=== PATIENT | female | born 1985 | race African-American/Black ===

== ENCOUNTER 2018-01-29 16:51 | Emergency (ER) | payer SELFPAY ==
[~2018-01-29] VITALS: Ht 172.7 cm; Wt 118.8 kg
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
--- OUTSIDE RECORDS SUMMARY | 2018-01-29 16:54 | XMS REPORT | Summary of Care ---
Author Organization Unknown Address Unknown Phone Unavailable Encounter BRYANNA Garcia(GIFTY) [id number] Date(s): 12/05/13 - 12/05/13 [facility] [address] [place] [address] Discharge Diagnosis: UTI (lower urinary tract infection) Discharge Diagnosis: Sciatica Discharge Disposition: Home Physician Attending: Aurora Watters MD Reason for Visit LOWER BACK PAIN Vital Signs Most recent to 1 2 oldest [Reference Range]: Height 175.26 cm (12/05/13 10:35 AM) Temperature Oral 98.2 DegF 97.9 DegF [96.4-99.1 DegF] (12/05/13 12:18 PM) (12/05/13 10:35 AM) Systolic Blood 127 mmHg 132 mmHg Pressure [90-140 (12/05/13 12:18 PM) (12/05/13 10:35 AM) mmHg] Diastolic Blood 83 mmHg 88 mmHg Pressure [60-90 (12/05/13 12:18 PM) (12/05/13 10:35 AM) mmHg] Respiratory Rate 18 BRMIN 19 BRMIN [14-20 BRMIN] (12/05/13 12:18 PM) (12/05/13 10:35 AM) Peripheral Pulse 73 bpm 91 bpm Rate [60-100 bpm] (12/05/13 12:18 PM) (12/05/13 10:35 AM) Weight 110.568 kg (12/05/13 10:35 AM) Body Mass Index 36 m2 (12/05/13 10:35 AM) Problem List No data available for this section Allergies, Adverse Reactions, Alerts No data available for this section Medications Flexeril 10 mg oral tablet 10 mg, PO, TID, Muscle Spasm, # 30 tab, 0 Refill(s) Start Date: 12/05/13 Stop Date: 12/15/13 Status: Ordered ketorolac 60 mg, 2 mL, Route: IM, Drug form: INJ, ONCE, Dosing Weight 110.568, kg, Priorit y: STAT, Start date: 12/05/13 11:21:00, Stop date: 12/05/13 11:21:00 Notes: (Same as:Toradol) IV bolus must be given >15 seconds. Give IM administration slowly and deeply into the muscle. Not for use > 4 days Start Date: 12/05/13 Stop Date: 12/05/13 Status: Completed Macrobid 100 mg oral capsule 100 mg=1 cap, PO, BID, # 14 cap, 0 Refill(s) Start Date: 12/05/13 Stop Date: 12/12/13 Status: Ordered Naprosyn 500 mg oral tablet 500 mg=1 tab, PO, BID, for pain, # 20 tab, 0 Refill(s) Start Date: 12/05/13 Status: Ordered orphenadrine 60 mg, 2 mL, Route: IM, Drug form: INJ, ONCE, Dosing Weight 110.568, kg, Priorit y: STAT, Start date: 12/05/13 11:21:00, Stop date: 12/05/13 11:21:00 Start Date: 12/05/13 Stop Date: 12/05/13 Status: Completed Results URINE AND STOOL Most recent to 1 oldest [Reference Range]: UA Turbidity [Clear] Clear (12/05/13 11:40 AM) UA Color [Yellow] Yellow *NA* (12/05/13 11:40 AM) UA pH [5.0-8.0] 7.0 (12/05/13 11:40 AM) UA Spec Grav 1.010 [<=1.030] (12/05/13 11:40 AM) UA Glucose Negative [Negative] (12/05/13 11:40 AM) UA Blood [Negative] Negative (12/05/13 11:40 AM) UA Ketones Negative [Negative] *NA* (12/05/13 11:40 AM) UA Protein Negative [Negative] (12/05/13 11:40 AM) UA Urobilinogen 0.2 EU/dL [0.1-1.0 EU/dL] (12/05/13 11:40 AM) UA Bili [Negative] Negative *NA* (12/05/13 11:40 AM) UA Leuk Est Small [Negative] *ABN* (12/05/13 11:40 AM) UA Nitrite Negative [Negative] (12/05/13 11:40 AM) UA WBC [None Seen 6-10 /HPF /HPF] *ABN* (12/05/13 11:40 AM) UA RBC [0-2 /HPF] 0-2 /HPF (12/05/13 11:40 AM) UA Bacteria [None Few /HPF Seen /HPF] (12/05/13 11:40 AM) UA Sq Epi [Few /LPF] Few /LPF (12/05/13 11:40 AM) UA Mucus [None Seen Few /LPF /LPF] (12/05/13 11:40 AM) UA Trichomonas [None Few /HPF Seen /HPF] *ABN* (12/05/13 11:40 AM) UA [place] Yeast [None Few /HPF Seen /HPF] *ABN* (12/05/13 11:40 AM) Micro? Performed (12/05/13 11:40 AM) Medications Administered During Your Visit No data available for this section Immunizations No data available for this section Social History Social History Type Response Smoking Status Current every day smoker, Type: Cigarettes, Ready to change: No, Concerns about tobacco use in household: No, Exposure to Tobacco Smoke None, Cigarette Smoking Last 365 Days Yes, Reg Smoking Cessation Counseling Yes
--- OUTSIDE RECORDS SUMMARY | 2018-01-29 16:54 | XMS REPORT | Summary of Care ---
Author Author [facility] Organization [facility] Address Unknown Phone Unavailable Encounter BRYANNA Garcia(GIFTY) [id number] Date(s): 01/23/17 - 01/23/17 [facility] [address] [employer] provided by [facility] [place] [address]- Discharge Disposition: Home or Self Care Attending Physician: Madalyn Barnes MD Vital Signs 1 2 3 Most recent to oldest [Reference Range]: 172.72 cm (01/23/17 7:13 AM) Height 97.7 DegF (01/23/17 8:57 AM) 98.2 DegF (01/23/17 7:13 AM) Temperature Oral [96.4-99.1 DegF] 123/77 mmHg (01/23/17 8:51 AM) 132/88 mmHg (01/23/17 7:29 AM) 135/85 mmHg (01/23/17 7:13 AM) Blood Pressure [90-140/60-90 mmHg] 20 BRMIN (01/23/17 8:51 AM) 18 BRMIN (01/23/17 7:29 AM) 20 BRMIN (01/23/17 7:13 AM) Respiratory Rate [14-20 BRMIN] 79 bpm (01/23/17 7:13 AM) Peripheral Pulse Rate [60-100 bpm] 100.455 kg (01/23/17 7:13 AM) Weight 33.67 m2 (01/23/17 7:13 AM) Body Mass Index Problem List No data available for this section Allergies, Adverse Reactions, Alerts No data available for this section Medications acetaminophen 650 mg, Route: PO, Drug form: TAB, ONCE, Dosing Weight 100.455, kg, Priority: ST AT, Start date: 01/23/17 7:53:00 [employer], Stop date: 01/23/17 7:53:00 [employer] Start Date: 01/23/17 Stop Date: 01/23/17 Status: Completed diphenhydrAMINE 25 mg, Route: PO, Drug form: CAP, ONCE, Dosing Weight 100.455, kg, Priority: STA T, Start date: 01/23/17 7:53:00 [employer], Stop date: 01/23/17 7:53:00 [employer] Start Date: 01/23/17 Stop Date: 01/23/17 Status: Completed hydrocortisone topical 1% cream 1 appl, Route: TOP, TID, Drug form: CRM, Start date: 01/23/17 9:00:00 [employer], Durat ion: 30 day, Stop date: 02/21/17 17:00:00 [employer] Start Date: 01/23/17 Stop Date: 01/23/17 Status: Discontinued ibuprofen 400 mg, Route: PO, ONCE, Dosing Weight 100.455, kg, Priority: STAT, Start date: 01/23/17 7:53:00 [employer], Stop date: 01/23/17 7:53:00 [employer] Start Date: 01/23/17 Stop Date: 01/23/17 Status: Completed Zofran ODT 4 mg, Route: PO, Drug form: TABDIS, ONCE, Dosing Weight 100.455, kg, Priority: S TAT, Start date: 01/23/17 7:53:00 [employer], Stop date: 01/23/17 7:53:00 [employer] Start Date: 01/23/17 Stop Date: 01/23/17 Status: Completed Results No data available for this section Immunizations No data available for this section Procedures Procedure Date Related Diagnosis Body Site section Social History Social History Type Response Smoking Status Former smoker; Type: Cigarettes; Ready to change: No; Concerns about tobacco use in household: No; Exposure to Tobacco Smoke None; Cigarette Smoking Last 365 Days Yes; Reg Smoking Cessation Counseling Yes; Tobacco use per day: 1; Assessment and Plan No data available for this section
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
[2018-01-29 17:35] LABS: BASOPHILS # (AUTO) 0.1 (0.0-0.1); BASOPHILS % 0.5 % (0.0-1.0); EOSINOPHILS # (AUTO) 0.4 (0.0-0.4); EOSINOPHILS % 3.8 % (0.0-6.0); HEMATOCRIT 34.1 % (34.2-44.1); HEMOGLOBIN 11.4 g/dL (12.0-16.0); LYMPHOCYTES % 27.2 % (18.0-39.1); MEAN CORPUSCULAR HEMOGLOBIN 28.4 pg (28-32); MEAN CORPUSCULAR HGB CONC 33.4 g/dL (31-35); MEAN CORPUSCULAR VOLUME 84.8 fL (81-99); MONOCYTES # (AUTO) 0.8 (0.2-0.8); MONOCYTES % 7.3 % (4.4-11.3); NEUTROPHILS # (AUTO) 6.8 (2.1-6.9); NEUTROPHILS % 60.8 % (38.7-80.0); PLATELET COUNT 348 x10e3/uL (140-360); RED BLOOD COUNT 4.02 x10e6/uL (3.6-5.1); RED CELL DISTRIBUTION WIDTH 13.3 % (11.7-14.4)
--- NOTE | 2018-01-29 17:43 | Diagnostic Imaging Report ---
EXAMINATION: CHEST 2 VIEWS INDICATION: Chest pain COMPARISON: None FINDINGS: TUBES and LINES: None. LUNGS: Lungs are well inflated. Lungs are clear. There is no evidence of pneumonia or pulmonary edema. PLEURA: No pleural effusion or pneumothorax. HEART AND MEDIASTINUM: The cardiomediastinal silhouette is unremarkable. BONES AND SOFT TISSUES: No acute osseous lesion. Soft tissues are unremarkable. UPPER ABDOMEN: No free air under the diaphragm. IMPRESSION: No acute thoracic abnormality. Signed by: Dr. Dave Mobley M.D. on 01/29/2018 5:40 PM
[2018-01-29 17:47] LABS: BILIRUBIN,URINE NEGATIVE (NEGATIVE); CLARITY,URINE CLEAR (CLEAR); COLOR,URINE YELLOW (YELLOW); KETONES,URINE NEGATIVE (NEGATIVE); LEUKOCYTE ESTERASE ,URINE NEGATIVE (NEGATIVE); NITRITE,URINE NEGATIVE (NEGATIVE); PREGNANCY TEST, URINE NEGATIVE (NEGATIVE); PROTEIN,URINE DIPSTICK NEGATIVE (NEGATIVE); URINE UROBILINOGEN 0.2 mg/dL (0.2 - 1)
[2018-01-29 18:00] LABS: AMORPHOUS SEDIMENT,URINE MODERATE (FEW); BACTERIA,URINE MODERATE /HPF; EPITHELIAL CELLS,URINE MANY /LPF
[2018-01-29 19:05] LABS: ALANINE AMINOTRANSFERASE 24 IU/L (0-55); ALBUMIN 3.5 g/dL (3.5-5.0); ALKALINE PHOSPHATASE 72 IU/L (40-150); ANION GAP 12.9 mmol/L (8-16); BLOOD UREA NITROGEN 12 mg/dL (7-26); BUN/CREATININE RATIO 12 (6-25); CALCIUM 9.8 mg/dL (8.4-10.2); CARBON DIOXIDE 23 mmol/L (22-29); CHLORIDE 108 mmol/L (98-107); CREATINE KINASE 262 IU/L (29-168); CREATININE, SERUM 0.98 mg/dL (0.57-1.11); EST GLOMERULAR FILTRATION RATE > 60 ML/MIN (60-); GLUCOSE 100 mg/dL (74-118); LIPASE 21 U/L (8-78); POTASSIUM 3.9 mmol/L (3.5-5.1); SODIUM 140 mmol/L (136-145)
[2018-01-29 19:25] LABS: ALBUMIN/GLOBULIN RATIO 1.1 (0.8-2.0)
--- NOTE | 2018-01-29 19:50 | Diagnostic Imaging Report ---
EXAM: CT Chest WITH contrast 01/29/2018 6:09 PM INDICATION: Chest pain. Elevated d-dimer. Shortness of breath. COMPARISON: None TECHNIQUE: Chest was scanned utilizing a multidetector helical scanner from the lung apex through the level of the adrenal glands without administration of IV contrast. Coronal and sagittal reformations were obtained. CTA chest pulmonary embolism protocol was performed. IV CONTRAST: 100 mL of Isovue-370 RADIATION DOSE: Total DLP: 525.5 to mGy*cm Estimated effective dose: (DLP x 0.014 x size factor) mSv All CT scans are performed using radiation dose reduction techniques. Technical factors are evaluated and adjusted to ensure appropriate moderation of exposure. Automated dose management technology is applied to adjust the radiation dose to minimize exposure while achieving a diagnostic-quality image. COMPLICATIONS: None FINDINGS: No pulmonary embolism is seen. LINES/ TUBES: None. LUNGS AND AIRWAYS: The lungs are unremarkable. Airways are normal. PLEURA: The pleural spaces are clear. HEART AND MEDIASTINUM: The thyroid gland is normal. No mediastinal, hilar or axillary lymphadenopathy. The heart is normal in size.. There is no pericardial effusion. UPPER ABDOMEN: Unremarkable BONES: The visualized bony thorax is within normal limits. SOFT TISSUES: Unremarkable. IMPRESSION: No pulmonary edema is seen. No acute cardiopulmonary abnormality. Signed by: Dr. Dave Mobley M.D. on 01/29/2018 7:47 PM
[2018-01-29 20:00] VITALS: BP 114/80
[2018-01-29] MEDS ORDERED: IOPAMIDOL 370 MG/ML 200 ML INFUS..BTL INJ ONE (21:17)
[2018-01-29] MEDS ORDERED: SODIUM CHLORIDE 0.9% 50ML 50 ML ONE (21:17)
== END 2018-01-29 20:12 | disposition home or self-care (01) ==
LOC: ER 16:51
DX: R07.89 Other chest pain (principal); R06.00 Dyspnea, unspecified; R11.0 Nausea
CPT/HCPCS: 36415; 71046; 71260; 80053; 81001; 81025; 82550; 82553; 83690; 84484; 85025; 85379; 93005; 99284; Q9967

== ENCOUNTER 2018-05-08 17:58 | Emergency (ER) | payer SELFPAY ==
[~2018-05-08] VITALS: Ht 172.7 cm; Wt 118.8 kg
--- OUTSIDE RECORDS SUMMARY | 2018-05-08 18:01 | XMS REPORT ---
Author Author [facility] Address Unknown Phone Unavailable Care Team Providers Care Ski Instructor Name Role Phone See LOFTON Unavailable Unavailable Problems This patient has no known problems. Allergies, Adverse Reactions, Alerts This patient has no known allergies or adverse reactions. Medications This patient has no known medications. Results Test Description Test Time Test Comments Text Results Atomic Results Result Comments CT CHEST W 2018-01-29 19:42:00 [place] [address] Patient Name: JACKIE NAVARRETE MR #: [id number] : 1985 Age/Sex: 32/F Req #: [id number] Adm Physician: Ordered by: LARISA LOFTON MD Report #: [id number] Location: ER Room/Bed: Procedure: [id number] CT/CT CHEST W Exam Date: 01/29/18 Exam Time: 1924 REPORT STATUS: Signed EXAM: CT Chest WITH contrast 01/29/2018 6:09 PM INDICATION: Chest pain. Elevated d-dimer. Shortness of breath. COMPARISON: None TECHNIQUE: Chest was scanned utilizing a multidetector helical scanner from the lung apex through the level of the adrenal glands without administration of IV contrast. Coronal and sagittal reformations were obtained. CTA chest pulmonary embolism protocol was performed. IV CONTRAST: 100 mL of Isovue-370 RADIATION DOSE: Total DLP: 525.5 to mGy*cm Estimated effective dose: (DLP x 0.014 x size factor) mSv All CT scans are performed using radiation dose reduction techniques. Technical factors are evaluated and adjusted to ensure appropriate moderation of exposure. Automated dose management technology is applied to adjust the radiation dose to minimize exp osure while achieving a diagnostic-quality image. COMPLICATIONS: None FINDINGS: No pulmonary embolism is seen. LINES/ TUBES: None. LUNGS AND AIRWAYS: The lungs are unremarkable. Airways are normal. PLEURA: The pleural spaces are clear. HEART AND MEDIASTINUM: The thyroid gland is normal. No mediastinal, hilar or axillary lymphadenopathy. The heart is normal in size.. There is no pericardial effusion. UPPER ABDOMEN: Unremarkable BONES: The visualized bony thorax is within normal limits. SOFT TISSUES: Unremarkable. IMPRESSION: No pulmonary edema is seen. No acute cardiopulmonary abnormality. Signed by: Dr. Dave Mobley M.D. on 01/29/2018 7:47 PM Dictated By: DAVE MOBLEY MD, MD 46 Transcribed By: SHERON on 01/29/181946 COPY TO: LARISA LOFTON MD CHEST 2 VIEWS 2018-01-29 17:40:00 [place] [address] Patient Name: JACKIE NAVARRETE MR #: [id number] : 1985 Age/Sex: 32/F Req #: [id number] Adm Physician: Ordered by: LARISA LOFTON MD Report #: [id number] Location: ER Room/Bed: Procedure: [id number] DX/CHEST 2 VIEWS Exam Date: 01/29/18 Exam Time: 1725 REPORT STATUS: Signed EXAMINATION: CHEST 2 VIEWS INDICATION: Chest pain COMPARISON: None FINDINGS: TUBES and LINES: None. LUNGS: Lungs are well inflated. Lungs are clear. There is no evidence of pneumonia or pulmonary edema. PLEURA: No pleural effusion or pneumothorax. HEART AND MEDIASTINUM: The cardiomediastinal silhouette is unremarkable. BONES AND SOFT TISSUES: No acute osseous lesion. Soft tissues are unremarkable. UPPER ABDOMEN: No free air under the diaphragm. IMPRESSION: No acute thoracic abnormality. Signed by: Dr. Dave Mobley M.D. on 01/29/2018 5:40 PM Dictated By: DAVE MOBLEY MD, MD 39 Transcribed By: SHERON on 01/29/181739 COPY TO: LARISA LOFTON MD
--- OUTSIDE RECORDS SUMMARY | 2018-05-08 18:01 | XMS REPORT | Continuity of Care Document ---
Author Author [facility] Interface Address Unknown Phone Unavailable Problems Problem Status Onset Date Classification Date Reported Comments Source Medications Medication Details Route Status Patient Instructions Ordering Provider Order Date Source Allergies, Adverse Reactions, Alerts Substance Category Reaction Severity Reaction type Status Date Reported Comments Source Immunizations Immunization Date Given Site Status Last Updated Comments Source Results Order Name Results Value Reference Range Date Interpretation Comments Source Urine color determination YELLOW YELLOW 01/29/2018 [facility] Urine clarity CLEAR CLEAR 01/29/2018 [facility] Specific gravity of Urine by Test strip 1.030 1.010 - 1.025 01/29/2018 [facility] Urine pH measurement by automated test strip 6 5 - 7 01/29/2018 [facility] Urine leukocyte esterase detection by dipstick NEGATIVE NEGATIVE 01/29/2018 [facility] Urine nitrite detection NEGATIVE NEGATIVE 01/29/2018 [facility] Urine protein measurement by test strip (mass/volume) NEGATIVE NEGATIVE 01/29/2018 [facility] Urine glucose detection NEGATIVE NEGATIVE 01/29/2018 [facility] Urine ketones detection by automated test strip NEGATIVE NEGATIVE 01/29/2018 [facility] Urine urobilinogen measurement by test strip (mass/volume) 0.2 0.2 - 1 01/29/2018 [facility] Urine total bilirubin measurement (mass/volume) NEGATIVE NEGATIVE 01/29/2018 [facility] Urine erythrocytes detection NEGATIVE NEGATIVE 01/29/2018 [facility] Automated urine sediment leukocyte count by microscopy (number/high power field) NONE 0 - 5 01/29/2018 [facility] Erythrocytes detection in urine sediment by light microscopy NONE 0 - 5 01/29/2018 [facility] Bacteria detection in urine sediment by light microscopy MODERATE NONE 01/29/2018 [facility] Epithelial cells detection in urine sediment by light microscopy MANY NONE 01/29/2018 [facility] Amorphous sediment detection in urine sediment by light microscopy MODERATE FEW 01/29/2018 [facility] [place] detection in urine sediment by light microscopy PRESENT NONE 01/29/2018 [facility] Urine human chorionic gonadotropin (hCG) detection NEGATIVE NEGATIVE 01/29/2018 [facility] Blood leukocytes automated count (number/volume) 11.10 4.8 - 10.8 01/29/2018 [facility] Blood erythrocytes automated count (number/volume) 4.02 3.6 - 5.1 01/29/2018 [facility] Blood hemoglobin measurement (moles/volume) 11.4 12.0 - 16.0 01/29/2018 [facility] Automated blood hematocrit (volume fraction) 34.1 34.2 - 44.1 01/29/2018 [facility] Automated erythrocyte mean corpuscular volume 84.8 81 - 99 01/29/2018 [facility] Automated erythrocyte mean corpuscular hemoglobin (mass per erythrocyte) 28.4 28 - 32 01/29/2018 [facility] Automated erythrocyte mean corpuscular hemoglobin concentration measurement (mass/volume) 33.4 31 - 35 01/29/2018 [facility] RDW BldCo-Rto 13.3 11.7 - 14.4 01/29/2018 [facility] Automated blood platelet count (count/volume) 348 140 - 360 01/29/2018 [facility] Automated blood segmented neutrophil count as percentage of total leukocytes 60.8 38.7 - 80.0 01/29/2018 [facility] Automated blood lymphocyte count as percentage ot total leukocytes 27.2 18.0 - 39.1 01/29/2018 [facility] Automated blood monocyte count as percentage of total leukocytes 7.3 4.4 - 11.3 01/29/2018 [facility] Automated blood eosinophil count as percentage of total leukocytes 3.8 0.0 - 6.0 01/29/2018 [facility] Automated blood basophil count as percentage of total leukocytes 0.5 0.0 - 1.0 01/29/2018 [facility] IM GRANULOCYTES % 0.4 0.0 - 1.0 01/29/2018 [facility] Automated blood neutrophil count 6.8 2.1 - 6.9 01/29/2018 [facility] Blood lymphocytes count (number/volume) 3.0 1.0 - 3.2 01/29/2018 [facility] Blood monocytes automated count (number/volume) 0.8 0.2 - 0.8 01/29/2018 [facility] Automated blood eosinophil count 0.4 0.0 - 0.4 01/29/2018 [facility] Automated blood basophil count (count/volume) 0.1 0.0 - 0.1 01/29/2018 [facility] Absolute Immature Granulocyte (auto 0.04 0 - 0.1 01/29/2018 [facility] Fibrin D-dimer DDU measurement in platelet poor plasma (mass/volume) 0.51 0.00 - 0.45 01/29/2018 [facility] Serum or plasma sodium measurement (moles/volume) 140 136 - 145 01/29/2018 [facility] Serum or plasma potassium measurement (moles/volume) 3.9 3.5 - 5.1 01/29/2018 [facility] Serum or plasma chloride measurement (moles/volume) 108 98 - 107 01/29/2018 [facility] Serum or plasma carbon dioxide, total measurement (moles/volume) 23 22 - 29 01/29/2018 [facility] Serum or plasma anion gap 12.9 8 - 16 01/29/2018 [facility] Serum or plasma urea nitrogen measurement (mass/volume) 12 7 - 26 01/29/2018 [facility] Serum or plasma creatinine measurement (mass/volume) 0.98 0.57 - 1.11 01/29/2018 [facility] Serum or plasma urea nitrogen/creatinine mass ratio 12 6 - 25 01/29/2018 [facility] Estimated glomerular filtration rate (GFR) determination > 60 60 01/29/2018 [facility] Glucose measurement 100 74 - 118 01/29/2018 [facility] Serum or plasma calcium measurement (mass/volume) 9.8 8.4 - 10.2 01/29/2018 [facility] Serum or plasma total bilirubin measurement (mass/volume) 0.3 0.2 - 1.2 01/29/2018 [facility] Aspartate Amino Transf (AST/SGOT) 19 5 - 34 01/29/2018 [facility] Serum or plasma alanine aminotransferase measurement (enzymatic activity/volume) 24 0 - 55 01/29/2018 [facility] Serum or plasma protein measurement (mass/volume) 6.7 6.5 - 8.1 01/29/2018 [facility] Serum or plasma albumin measurement (mass/volume) 3.5 3.5 - 5.0 01/29/2018 [facility] Plasma globulin measurement (mass/volume) 3.2 2.3 - 3.5 01/29/2018 [facility] Serum or plasma albumin/globulin mass ratio 1.1 0.8 - 2.0 01/29/2018 [facility] Serum or plasma alkaline phosphatase measurement (enzymatic activity/volume) 72 40 - 150 01/29/2018 [facility] Serum or plasma creatine kinase measurement (enzymatic activity/volume) 262 29 - 168 01/29/2018 [facility] Serum or plasma creatine kinase MB measurement (mass/volume) 2.30 0 - 5.0 01/29/2018 [facility] Troponin I measurement by highly sensitive enzyme immunoassay 0.016 0 - 0.300 01/29/2018 [facility] Serum or plasma lipase measurement (enzymatic activity/volume) 21 8 - 78 01/29/2018 [facility] Vital Signs Vital Sign Value Date Comments Source Encounters Location Location Details Encounter Type Encounter Number Reason For Visit Attending Provider ADM Date DC Date Status Source Departed Emergency Room [id number] LARISA LOFTON MD 01/29/2018 01/29/2018 [facility] Procedures Procedure Code Date Perfomer Comments Source X-ray of chest, two views [id number] 01/29/2018 [facility] Computed tomography of chest with contrast [id number] 01/29/2018 [facility]
[2018-05-08] MEDS ORDERED: SODIUM CHLORIDE 0.9% 1000ML 1,000 ML IV STA (18:16)
[2018-05-08] MEDS ORDERED: ONDANSETRON HCL INJ 2MG/ML 2ML 2 MG/ML VIAL IV NR (18:30)
[2018-05-08] MEDS ORDERED: KETOROLAC TROMETHAMINE 30 MG/ML VIAL IV NR (18:30)
--- NOTE | 2018-05-08 19:01 | Diagnostic Imaging Report ---
CT BRAIN WO HISTORY: Headache COMPARISON: None. TECHNIQUE: Noncontrast axial scans were obtained from skull base to the vertex. Coronal and sagittal reconstructions obtained from the axial data. One or more of the following dose reduction techniques were used: Automated exposure control, adjustment of the mA and/or kV according to patient size, and/or utilization of iterative reconstruction technique. DISCUSSION: Scalp/Skull: Unremarkable. Brain sulci: Appropriate for patient's age. Ventricles: Normal in size and configuration. No hydrocephalus. Extra-axial spaces: No masses or fluid collections. Parenchyma: No abnormal densities. No mass, hemorrhage, or large vascular territory acute infarct. Dural sinuses: No abnormal densities. Sellar/Suprasellar region: Intact. Skull base: Intact. Incidental findings: None. IMPRESSION: No intracranial abnormalities. Signed by: Dr. Sukhwinder Melo M.D. on 05/08/2018 6:58 PM
[2018-05-08 19:20] LABS: BASOPHILS # (AUTO) 0.1 (0.0-0.1); BASOPHILS % 0.6 % (0.0-1.0); EOSINOPHILS # (AUTO) 0.5 (0.0-0.4); EOSINOPHILS % 4.1 % (0.0-6.0); HEMATOCRIT 34.9 % (34.2-44.1); HEMOGLOBIN 11.4 g/dL (12.0-16.0); LYMPHOCYTES # (AUTO) 3.2 (1.0-3.2); LYMPHOCYTES % 27.3 % (18.0-39.1); MEAN CORPUSCULAR HEMOGLOBIN 27.4 pg (28-32); MEAN CORPUSCULAR HGB CONC 32.7 g/dL (31-35); MEAN CORPUSCULAR VOLUME 83.9 fL (81-99); MONOCYTES # (AUTO) 0.8 (0.2-0.8); MONOCYTES % 6.9 % (4.4-11.3); NEUTROPHILS % 60.8 % (38.7-80.0); PLATELET COUNT 366 x10e3/uL (140-360); RED BLOOD COUNT 4.16 x10e6/uL (3.6-5.1); RED CELL DISTRIBUTION WIDTH 14.4 % (11.7-14.4)
[2018-05-08 19:37] LABS: COLOR,URINE YELLOW (YELLOW)
[2018-05-08 19:38] LABS: CLARITY,URINE SL CLOUDY (CLEAR); KETONES,URINE NEGATIVE (NEGATIVE); LEUKOCYTE ESTERASE ,URINE TRACE (NEGATIVE); NITRITE,URINE NEGATIVE (NEGATIVE); PROTEIN,URINE DIPSTICK NEGATIVE (NEGATIVE)
[2018-05-08 19:38] LABS: INFLUENZAE A&B ANTIGEN (RAPID) NEGATIVE (NEGATIVE); STREPTOCOCCUS GRP A ANTIGEN NEGATIVE (NEGATIVE)
[2018-05-08 19:39] LABS: BACTERIA,URINE MODERATE /HPF; BILIRUBIN,URINE NEGATIVE (NEGATIVE); EPITHELIAL CELLS,URINE MANY /LPF; PREGNANCY TEST, URINE NEGATIVE (NEGATIVE); RBC,URINE 0-5 /HPF (0-5); URINE UROBILINOGEN 0.2 mg/dL (0.2 - 1)
[2018-05-08] MEDS ORDERED: CEFTRIAXONE SOD 1 GM VIAL IV ONE (20:00)
[2018-05-08] MEDS ORDERED: CEFTRIAXONE SOD 1 GM/NS 50 ML 50 ML IV ONE (20:15)
[2018-05-08 20:18] LABS: ALANINE AMINOTRANSFERASE 21 IU/L (0-55); ALBUMIN 3.6 g/dL (3.5-5.0); ALBUMIN/GLOBULIN RATIO 1.1 (0.8-2.0); ALKALINE PHOSPHATASE 63 IU/L (40-150); ANION GAP 14.5 mmol/L (8-16); BLOOD UREA NITROGEN 9 mg/dL (7-26); BUN/CREATININE RATIO 10 (6-25); CALCIUM 9.8 mg/dL (8.4-10.2); CARBON DIOXIDE 23 mmol/L (22-29); CHLORIDE 106 mmol/L (98-107); CREATININE, SERUM 0.86 mg/dL (0.57-1.11); EST GLOMERULAR FILTRATION RATE > 60 ML/MIN (60-); GLUCOSE 94 mg/dL (74-118); LIPASE 15 U/L (8-78); POTASSIUM 4.5 mmol/L (3.5-5.1); SODIUM 139 mmol/L (136-145)
[2018-05-08 20:41] VITALS: BP 111/67
== END 2018-05-08 21:11 | disposition home or self-care (01) ==
LOC: ER 17:58
DX: G44.219 Episodic tension-type headache, not intractable (principal); N39.0 Urinary tract infection, site not specified; K52.9 Noninfective gastroenteritis and colitis, unspecified; I10 Essential (primary) hypertension
CPT/HCPCS: 36415; 70450; 80053; 81001; 81025; 83518; 83690; 85025; 87070; 87086; 87400; 99284; J0696; J1885; J2405; J7030